=== PATIENT | male | born 1990 | race Caucasian/White ===

== ENCOUNTER 2018-09-09 10:46 | Emergency (ER) | payer OTHER ==
[~2018-09-09] VITALS: Ht 175.3 cm; Wt 134.1 kg
[2018-09-09 11:08] VITALS: Ht 175.3 cm; Wt 134.1 kg
[2018-09-09] MEDS ORDERED: HYDROCODONE/APAP (5/325) TAB PO ONE (12:00)
[2018-09-09] MEDS ORDERED: IBUP-1542 PO (13:20)
[2018-09-09] MEDS ORDERED: HYDR-4011 PO (13:20)
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
[2018-09-09 13:57] VITALS: BP 148/81; PULSE 66; RESP 19
== END 2018-09-09 14:04 | disposition home or self-care (01) ==
LOC: FTE 10:46
DX: S93.401A Sprain of unspecified ligament of right ankle, initial encounter (principal); V13.4XXA Pedal cycle driver injured in collision with car, pick-up truck or van in traffic accident, initial encounter
CPT/HCPCS: 29515; 73564; 73610; 74018; 76705; Z7502; Z7610